=== PATIENT | male | born 1950 | race Caucasian/White ===

== ENCOUNTER 2020-10-09 05:51 | Emergency (ER) | payer OTHER ==
[2020-10-09] MEDS ORDERED: Aspirin 325 MG TAB ONE (06:04)
[2020-10-09 06:32] LABS: #Eosinphils 0.2 10x3/uL (0.0-0.5); #Monocytes 0.9 10x3/uL (0.0-1.1); %Basophils 0.4 % (0.0-2.0); %Eosinophils 1.7 % (0.0-6.0); %Lymphocytes 6.3 % (18.0-47.0); %Monocytes 8.9 % (0.0-10.0); %Neutrophils 82.5 % (40.0-75.0); Hemoglobin 11.9 g/dL (13.5-17.5); Mean Corpuscular HGB CONC 32.5 g/dL (32.0-36.0); Mean Corpuscular Hemoglobin 29.5 pg (27.0-33.0); Mean Corpuscular Volume 90.6 fl (81.2-95.1); Platelet Count 178 10x3/uL (150-450); RBC Distribution Width 12.7 % (11.5-14.5); Red Blood Cell (RBC) Count 4.04 10x6/uL (4.32-5.72); White Blood Cell (WBC) Count 9.7 10x3/uL (3.5-10.5)
[2020-10-09 06:54] LABS: Calcium 8.5 mg/dL (7.8-10.44); Chloride 109 mmol/L (98-107); Potassium 4.4 mmol/L (3.5-5.1); Sodium 139 mmol/L (136-145)
[2020-10-09 07:43] LABS: ALT (SGPT) 29 U/L (8-55); AST (SGOT) 27 U/L (5-34); Albumin 3.8 g/dL (3.4-4.8); Alkaline Phosphatase 95 U/L (40-110); BUN (Urea Nitrogen) 16 mg/dL (8.4-25.7); Bilirubin, Total 0.7 mg/dL (0.2-1.2); Calc. Creatinine Clearance 0 mL/min (70-130); Carbon Dioxide 17 mmol/L (23-31); Globulin 2.5 g/dL (2.4-3.5); Glucose 116 mg/dL (83-110); Lipase 12 U/L (8-78); Magnesium 2.1 mg/dL (1.6-2.6); Protein, Total 6.3 g/dL (5.8-8.1)
[2020-10-09 07:55] LABS: Anion Gap 17 mmol/L (10-20)
[2020-10-09 08:11] LABS: Bilirubin Neg (Negative); Blood, Urine 150 (Negative); Clarity Clear (Clear); Glucose, Urine (Dipstick) Normal (Negative); Ketone, Urine Negative (Negative); Leukocyte 25 (Negative); Nitrite Negative (Negative); Protein, Urine (Dipstick) Negative (Neg-Trace); Urobilinogen Normal mg/dL (Less than 2)
[2020-10-09 08:20] LABS: Squamous Epithelial 0-3 HPF (0-3)
[2020-10-09 08:21] LABS: Bacteria/HPF None Seen HPF (None Seen)
== END 2020-10-09 10:54 | disposition short-term general hospital (02) ==
LOC: CSHERS 05:51
DX: I20.0 Unstable angina (principal)
CPT/HCPCS: 36415; 71045; 80053; 81003; 81015; 83690; 83735; 84484; 85025; 85379; 87086; 93005